=== PATIENT | male | born 1985 ===

== ENCOUNTER 2020-12-19 13:08 | Outpatient (REF) | payer MEDICAID, SELFPAY ==
--- NOTE | 2020-12-19 15:16 | MHC.AU.ANH ---
Adult Audiological Evaluation Date of Visit: 12/19/20 Senior Ssis Developer Used: ASL- By Video Reason for Appointment: Audiological evaluation to monitor the status of Mr. Urbina's hearing loss. Mr. Urbina states that his workplace is requiring a hearing evaluation. He reports a longstanding history of hearing loss, first diagnosed in childhood. Mr. Urbina speaks ASL. He previously was followed by [facility]. He had hearing aids, but lost them during a move. He states it's been about 4 years since his last hearing evaluation. Previous Hearing Test Results: [facility], results not available for review today. Ear History: Recent Ear Pain: Right Ear Bothersome Tinnitus/Ringing/Noises in Ears: Both Ears Medical History: Medical History: Headache, Heart Problems Medical History: Heart surgery in 2017, Brugada syndrome, pacemaker Medication List: Loratadine 10 mg, Flonase, Omeprazole 40 mg, Colace 100 mg PRN, Acetaminophen 500 mg PRN Otoscopy: Right Ear: Scarring on TM, clear canal Left Ear: Scarring on TM, clear canal Tympanometry: Tympanometry performed due to: To assess integrity of the middle ear system Right Ear: Hypercompliant Middle Ear System (Type Ad) Left Ear: Hypercompliant Middle Ear System (Type Ad) Hearing Evaluation: Transducer(s) Used: Insert Earphones, Bone Conduction Method: Conventional Audiometry Stimuli Used: Pure Tones Right Ear: Description of Hearing: Moderately severe sloping to profound mixed hearing loss from 250-8000 Hz. Left Ear: Description of Hearing: Moderately severe sloping to profound mixed hearing loss from 250-8000 Hz. Speech Recognition Threshold (SRT): Method Used: Not performed at today's visit. Patient speaks ASL. Word Discrimination: Method: Not performed at today's visit. Patient speaks ASL. Recommendations: Audiological re-evaluation in one year. Trial with amplification is recommended. Medical clearance from a physician is required before fitting. Hearing aid(s) will be ordered after approval is received. Mr. Urbina is interested in trying new hearing aids. Discussed options. Will check with his insurance to confirm eligibility. Diagnosis: Primary Diagnosis: H90.6 Mixed Hearing Loss, Bilateral Services Performed: Comprehensive Audiological Evaluation (CPT 80324) Tympanometry (CPT 38450) Signature: Provider: Sylvie Mitchell, [facility]
--- NOTE | 2020-12-19 15:18 | MHC.AU.HAS ---
Hearing Aid Evaluation Date of Visit: 12/19/20 Material Handler Used: ASL- By Video Historical Information: Description of Hearing: Moderately severe to profound mixed hearing loss bilaterally. Summary: Mr. Urbina was diagnosed with hearing loss in childhood and speaks ASL. He has used hearing aids in the past, but lost his previous pair a few years ago. He is interested in trying a new pair. Discussed options with him. Recommend Oticon BTEs, as that is likely what his previous ones were. Patient uses an iPhone Hearing Aid Prescription: Based on the individual?s shared listening needs, communication environments, dexterity, desire for connectivity, and personal preferences, the following prescription for amplification has been made: Right ear: Spiral Spring Winder: Oticon Model: Xceed 2 BTE SP Battery Size: 13 Color: 94- Terracotta Type of Mold: Skeleton mold Left ear: Left ear prescription to be same as Right Hearing Aid above: Spiral Spring Winder: Oticon Model: Xceed 2 BTE SP Battery Size: 13 Color: 94- Terracotta Type of Mold: Skeleton mold Action Taken/Action Needed: Earmold Impressions Taken. Medical Clearance to be requested from PCP/ENT. Hearing Instrument Fitting to be scheduled when materials arrive. Will check with [facility] to confirm eligibility. If it has been less than 5 years since his last hearing aids, will submit an online PA. Primary Diagnosis: H90.6 Mixed Hearing Loss, Bilateral Signature: Provider: Sylvie Mitchell, CCC-A
--- NOTE | 2020-12-19 15:20 | MHC.AU.MED ---
Medical Clearance for Hearing Instrumentation Date: 12/19/20 Patient Name: Merari Urbina Date of : 1985 Primary Care Provider: Vicky Lopez MD Referring Provider: Vicky Lopez MD We have seen your patient on 12/19/20 and have determined that they are a candidate for amplification (See accompanying report). Specifically, they would benefit from: Hearing aid use in both ears There is a statute that addresses Medical Evaluation Requirements prior to fitting a patient with a hearing aid. According to [place] statute 265 CMR:6.03(1), (a) General. Except as provided in 265 CMR 6.03(1)(b), a shearing machine operator shall not sell a hearing aid unless the prospective user has presented to the shearing machine operator a written statement signed by a licensed physician that states that the patient's hearing loss has been medically evaluated and the patient may be considered a candidate for a hearing aid. The medical evaluation must have taken place within the preceding six months. Please note: Due to the [place] Statute referenced above, we cannot accept a signature other than that of a licensed physician. ACCOUNTS RECEIVABLE SUPERVISOR and PA signatures cannot be accepted. I am in agreement with the above recommendation. There is no medical contraindication for hearing instrumentation. Physician Signature Date Physician Name (Printed)
== END 2020-12-19 13:09 | disposition home or self-care (01) ==
LOC: HO.SH 13:08
PROVIDERS: PCP Family Medicine; Visit Provider Family Medicine
DX: Z46.1 Encounter for fitting and adjustment of hearing aid (principal); H90.6 Mixed conductive and sensorineural hearing loss, bilateral
CPT/HCPCS: 92557; 92567; 92591; V5275

== ENCOUNTER 2021-02-03 10:02 | Outpatient (REF) | payer MEDICAID, SELFPAY | END 2021-02-03 10:03 | disposition home or self-care (01) | LOC: HO.HAP 10:02 | PROVIDERS: Visit Provider Family Medicine | DX: Z46.1 Encounter for fitting and adjustment of hearing aid (principal); H90.6 Mixed conductive and sensorineural hearing loss, bilateral | CPT/HCPCS: V5011; V5020; V5160; V5261; V5264; V5266 ==

== ENCOUNTER 2021-02-26 14:36 | Outpatient (REF) | payer MEDICAID, SELFPAY | END 2021-02-26 14:37 | disposition home or self-care (01) | LOC: HO.HAP 14:36 | PROVIDERS: Visit Provider Family Medicine | DX: Z13.89 Encounter for screening for other disorder (principal) ==